=== PATIENT | female | born 1935 | race Caucasian/White ===

== ENCOUNTER 2017-12-29 00:32 | Emergency (ER) | payer MEDICARE ==
[~2017-12-29] VITALS: Ht 157.5 cm; Wt 70.0 kg
[~2017-12-29 00:32] MED LIST: ACCU40TA10 PO; ATEN1TAB74 PO
[2017-12-29] MEDS ORDERED: FURO1TAB62 PO (00:47)
[2017-12-29] MEDS ORDERED: LISI10TA3 PO (00:47)
[2017-12-29] MEDS ORDERED: ATEN50TA PO (00:47)
[2017-12-29 00:54] LABS: BASOPHIL % 0.4 % (0.0-2.0); EOSINOPHIL % 0.4 % (0.0-4.0); HEMATOCRIT 39.4 % (35.0-46.0); HEMOGLOBIN 13.9 GM/DL (11.6-15.3); LYMPH % 11.7 % (9.0-44.0); LYMPHOCYTE # 0.9 TH/MM3 (1.0-4.8); MEAN CELL VOLUME 89.9 FL (80.0-100.0); MEAN CORPUSCULAR HEMOGLOBIN 31.6 PG (27.0-34.0); MEAN CORPUSCULAR HGB CONC 35.1 % (32.0-36.0); MEAN PLATELET VOLUME 8.3 FL (7.0-11.0); MONO % 7.8 % (0.0-8.0); MONOCYTE # 0.6 TH/MM3 (0-0.9); NEUT % 79.7 % (16.0-70.0); PLATELET COUNT 194 TH/MM3 (150-450); RED BLOOD COUNT 4.39 MIL/MM3 (4.00-5.30); WHITE BLOOD COUNT 7.6 TH/MM3 (4.0-11.0)
[2017-12-29 00:55] VITALS: BP 193/81; PULSE 68; RESP 20; TEMP 98.1; O2SAT 98
[2017-12-29 01:12] LABS: ALKALINE PHOSPHATASE 80 U/L (45-117); TOTAL BILIRUBIN ADULT 0.5 MG/DL (0.2-1.0); TOTAL PROTEIN 7.1 GM/DL (6.4-8.2)
[2017-12-29 01:17] LABS: PROTHROMBIN TIME - PATIENT 10.1 SEC (9.8-11.6)
[2017-12-29 01:26] LABS: ALBUMIN 3.4 GM/DL (3.4-5.0); ALT (GPT) 31 U/L (10-53); AST (GOT) 27 U/L (15-37); BICARBONATE 24.3 MEQ/L (21.0-32.0); BLOOD UREA NITROGEN 10 MG/DL (7-18); CALCIUM 9.1 MG/DL (8.5-10.1); CHLORIDE 101 MEQ/L (98-107); CREATININE 0.65 MG/DL (0.50-1.00); GLOMERULAR FILTRATION RATE 87 ML/MIN (>89); GLUCOSE,RANDOM 108 MG/DL (74-106); SODIUM (NA) 134 MEQ/L (136-145)
[2017-12-29 02:29] VITALS: BP 184/82; PULSE 68; RESP 19; O2SAT 98
--- NOTE | 2017-12-29 02:58 | PD ---
HPI Chief Complaint: GI Complaint Time Seen by Provider: 02:53 Travel History International Travel<30 days: No Contact w/Intl Traveler<30days: No Traveled to known affect area: No History of Present Illness HPI Patient states that she has a appointment with GI doctor [place] tomorrow. She was referred because she has had episodes of bright red blood per rectum. Patient denies any associated abdominal pain, nor any rectal pain. Patient denies any alleviating or aggravating factors. Patient denies any associated factors such as fever, rash, headache, chest pain, abdominal pain, back pain, nausea, vomiting. Allergic to penicillin Past medical history significant for hypothyroidism glaucoma hypertension IBS, cholecystectomy hernia repair. PFSH Past Medical History Cancer: Yes (hx of skin cancer) Diabetes: No Diminished Hearing: No Gastrointestinal Disorders: Yes (IBS) Glaucoma: Yes (suspect of) Hepatitis: No Hiatal Hernia: No Hypertension: Yes Thyroid Disease: Yes Tetanus Vaccination: > 5 Years Influenza Vaccination: Yes ?: Not : 4 Para: 3 Miscarriage: 1 Past Surgical History Abdominal Surgery: Yes (gallbladder removed) Cholecystectomy: Yes Pacemaker: No Other Surgery: Yes (hernia) Social History Alcohol Use: Yes (2 glasses wine per day) Tobacco Use: No Substance Use: No Allergies-Medications (Allergen,Severity, Reaction): Coded Allergies: penicillin G (Unverified Allergy, Severe, unknown reaction, 12/29/17) Reported Meds & Prescriptions Reported Meds & Active Scripts Active Reported Lasix (Furosemide) 20 Mg Tab 20 Mg PO DAILY Lisinopril 10 Mg Tab 10 Mg PO DAILY Atenolol 50 Mg Tab 50 Mg PO DAILY Review of Systems General / Constitutional: No: Fever Eyes: No: Visual changes HENT: No: Headaches Cardiovascular: No: Chest Pain or Discomfort Respiratory: No: Shortness of Breath Gastrointestinal: Positive: Other (Bright red blood per rectum) Genitourinary: No: Dysuria Musculoskeletal: No: Pain Skin: No Rash Neurologic: No: Weakness Psychiatric: No: Depression Endocrine: No: Polydipsia Hematologic/Lymphatic: No: Easy Bruising Physical Exam Narrative GENERAL: SKIN: Warm and dry. HEAD: Atraumatic. Normocephalic. EYES: Pupils equal and round. No scleral icterus. No injection or drainage. ENT: No nasal bleeding or discharge. Mucous membranes pink and moist. NECK: Trachea midline. No JVD. CARDIOVASCULAR: Regular rate and rhythm. RESPIRATORY: No accessory muscle use. Clear to auscultation. Breath sounds equal bilaterally. GASTROINTESTINAL: Abdomen soft, non-tender, nondistended. RN at bedside for rectal examination which revealed external hemorrhoid which was not actively bleeding, and had a beginning of healing surface clot, rectal exam did not reveal any bright red blood. Ice is highly suspect that the bright red blood was coming from the external hemorrhoid which is not bleeding currently. MUSCULOSKELETAL: Extremities without clubbing, cyanosis, or edema. No obvious deformities. NEUROLOGICAL: Awake and alert. No obvious cranial nerve deficits. Motor grossly within normal limits. Five out of 5 muscle strength in the arms and legs. Normal speech. PSYCHIATRIC: Appropriate mood and affect; insight and judgment normal. Data Data Last Documented VS Vital Signs Date Time Temp Pulse Resp B/P (MAP) Pulse Ox O2 Delivery O2 Flow Rate FiO2 12/29/17 02:29 68 19 184/82 (116) 98 Room Air 12/29/17 00:55 98.1 Orders Orders Complete Blood Count With Diff (12/29/17 00:36) Comprehensive Metabolic Panel (12/29/17 00:36) Prothrombin Time / Inr (Pt) (12/29/17 00:36) Act Partial Throm Time (Ptt) (12/29/17 00:36) Ecg Monitoring (12/29/17 00:36) Oximetry (12/29/17 00:36) Oxygen Administration (12/29/17 00:36) Iv Access Insert/Monitor (12/29/17 00:36) Type And Screen (12/29/17 00:36) Labs Laboratory Tests Test 12/29/17 00:42 White Blood Count 7.6 TH/MM3 Red Blood Count 4.39 MIL/MM3 Hemoglobin 13.9 GM/DL Hematocrit 39.4 % Mean Corpuscular Volume 89.9 FL Mean Corpuscular Hemoglobin 31.6 PG Mean Corpuscular Hemoglobin Concent 35.1 % Red Cell Distribution Width 14.0 % Platelet Count 194 TH/MM3 Mean Platelet Volume 8.3 FL Neutrophils (%) (Auto) 79.7 % Lymphocytes (%) (Auto) 11.7 % Monocytes (%) (Auto) 7.8 % Eosinophils (%) (Auto) 0.4 % Basophils (%) (Auto) 0.4 % Neutrophils # (Auto) 6.0 TH/MM3 Lymphocytes # (Auto) 0.9 TH/MM3 Monocytes # (Auto) 0.6 TH/MM3 Eosinophils # (Auto) 0.0 TH/MM3 Basophils # (Auto) 0.0 TH/MM3 CBC Comment DIFF FINAL Differential Comment Prothrombin Time 10.1 SEC Prothromb Time International Ratio 1.0 RATIO Activated Partial Thromboplast Time 24.3 SEC Blood Urea Nitrogen 10 MG/DL Creatinine 0.65 MG/DL Random Glucose 108 MG/DL Total Protein 7.1 GM/DL Albumin 3.4 GM/DL Calcium Level 9.1 MG/DL Alkaline Phosphatase 80 U/L Aspartate Amino Transf (AST/SGOT) 27 U/L Alanine Aminotransferase (ALT/SGPT) 31 U/L Total Bilirubin 0.5 MG/DL Sodium Level 134 MEQ/L Potassium Level 3.9 MEQ/L Chloride Level 101 MEQ/L Carbon Dioxide Level 24.3 MEQ/L Anion Gap 9 MEQ/L Estimat Glomerular Filtration Rate 87 ML/MIN MDM Medical Decision Making Medical Screen Exam Complete: Yes Emergency Medical Condition: Yes Medical Record Reviewed: Yes Differential Diagnosis Hemorrhoid, bleeding versus polyp versus internal hemorrhoid versus colon CA Narrative Course CBC shows no evidence of leukocytosis, no anemia with a H&H of 13.9/39.4, normal platelet count, no left shift. Coagulation profile was within normal limits Chemistry shows normal electrolytes, normal kidney functions, normal liver functions O+ negative antibody screen Diagnosis Primary Impression: gi bleed hemodynamically stable Additional Instructions: please keep appointment with GI doctor [place] on thursday for further evaluation and likely scheduled for endoscopy and colonoscopy Disposition: 01 DISCHARGE HOME Condition: Stable Jethro Márquez MD Dec 29, 2017 02:58
== END 2017-12-29 04:48 | disposition home or self-care (01) ==
LOC: NEPC 00:32
DX: K92.2 Gastrointestinal hemorrhage, unspecified (principal); I10 Essential (primary) hypertension
CPT/HCPCS: 80053; 85025; 85610; 85730; 86850; 86900; 86901; 99283